=== PATIENT | male | born 1945 | race Caucasian/White ===

== ENCOUNTER → 2018-11-16 12:01 | Outpatient (POV) | payer OTHER, SELFPAY | PROVIDERS: Visit Provider Internal Medicine | DX: Z00.00 Encounter for general adult medical examination without abnormal findings (principal) ==

== ENCOUNTER → 2019-05-05 12:55 | Outpatient (CLI) | payer OTHER, SELFPAY | PROVIDERS: Visit Provider Internal Medicine | DX: J44.9 Chronic obstructive pulmonary disease, unspecified (principal) | CPT/HCPCS: 94060; 94640; 94726; 94729 ==

== ENCOUNTER 2019-05-11 14:23 | Outpatient (RCR) | payer OTHER, SELFPAY | END 2019-08-01 13:19 | disposition home or self-care (01) | LOC: PT 14:23 | DX: J44.9 Chronic obstructive pulmonary disease, unspecified (principal) | CPT/HCPCS: G0424 ==

== ENCOUNTER 2024-08-11 12:46 | Outpatient (RCR) | payer OTHER, SELFPAY | END 2024-10-13 14:00 | disposition home or self-care (01) | LOC: PULREHAB 12:46 | PROVIDERS: Visit Provider Internal Medicine | DX: J44.9 Chronic obstructive pulmonary disease, unspecified (principal) | CPT/HCPCS: 94626 ==